=== PATIENT | male | born 1940 | race Two or more races ===

== ENCOUNTER 2022-05-30 13:09 | Emergency (ER) | payer OTHER ==
[~2022-05-30] VITALS: Ht 175.3 cm; Wt 78.0 kg
== END 2022-05-30 16:51 | disposition home or self-care (01) ==
LOC: ER 13:09
DX: U07.1 COVID-19 (principal)

== ENCOUNTER 2023-08-24 10:47 | Outpatient (CLI) | payer OTHER | END 2023-08-24 10:54 | disposition home or self-care (01) | LOC: RAD 10:47 | PROVIDERS: ATTEND Specialist | DX: M16.0 Bilateral primary osteoarthritis of hip (principal); M17.0 Bilateral primary osteoarthritis of knee ==

== ENCOUNTER 2023-11-03 07:46 | Emergency (ER) | payer OTHER ==
[~2023-11-03] VITALS: Ht 175.3 cm; Wt 79.4 kg
[2023-11-03] MEDS ORDERED: XARELTO10 MG PO (08:02)
[2023-11-03] MEDS ORDERED: TAMS0.4C PO (08:02)
== END 2023-11-03 10:40 | disposition home or self-care (01) ==
LOC: ER 07:47
DX: N40.0 Benign prostatic hyperplasia without lower urinary tract symptoms (principal); R33.9 Retention of urine, unspecified

== ENCOUNTER 2024-09-15 09:26 | Emergency (ER) | payer OTHER ==
[~2024-09-15] VITALS: Ht 172.7 cm; Wt 80.7 kg
[~2024-09-15 09:26] MED LIST: TAMS0.4C PO; XARELTO10 MG PO
[2024-09-15] MEDS ORDERED: LEVALBUTEROL HCL 1.25 MG/3 ML SOLUTION IH STA (10:52)
[2024-09-15] MEDS ORDERED: BUDESONIDE 0.5 MG/2 ML AMPUL.NEB IH STA (10:53)
[2024-09-15] MEDS ORDERED: LEVALBUTEROL HCL 1.25 MG/3 ML SOLUTION IH ONE (11:30)
[2024-09-15] MEDS ORDERED: BUDESONIDE 0.5 MG/2 ML AMPUL.NEB IH ONE (11:31)
[2024-09-15 11:33] LABS: HEMATOCRIT 39.7 % (39.0-48.0); HEMOGLOBIN 13.1 g/dL (13-16.00); MEAN CELL VOLUME 95.9 fL (80.0-100.00); MEAN CORPUSCULAR HEMOGLOBIN 31.7 pg (27.00-32.0); PLATELET COUNT 158 K/uL (150-450); RED BLOOD COUNT 4.14 M/uL (4.00-6.00); RED CELL DISTRIBUTION WIDTH 13.1 % (11.5-14.5)
== END 2024-09-15 13:38 | disposition home or self-care (01) ==
LOC: ER 09:28
PROVIDERS: General Practice
DX: J40 Bronchitis, not specified as acute or chronic (principal); R05.9 Cough, unspecified; Z20.822 Contact with and (suspected) exposure to COVID-19

== ENCOUNTER 2025-01-15 09:29 | Emergency (ER) | payer OTHER ==
[~2025-01-15] VITALS: Ht 175.3 cm; Wt 82.6 kg
[2025-01-15] MEDS ORDERED: CEFTRIAXONE SODIUM 1,000 MG VIAL IV ONE (10:30)
[2025-01-15] MEDS ORDERED: CEFTRIAXONE SODIUM 1,000 MG VIAL ONE (10:30)
[2025-01-15] MEDS ORDERED: LEVALBUTEROL HCL 0.63 MG/3 ML SOLUTION IH ONE ×2 (10:30→10:43)
[2025-01-15 11:14] LABS: COVID-19 AG NEGATIVE (NEGATIVE); INFLUENZA A AG NEGATIVE (NEGATIVE)
[2025-01-15 13:15] LABS: ABG PH 7.409 (7.35-7.45); ABG PO2 77.6 mmHg (80-100); ABG pCO2 49.6 mmHg (35-45); BASE EXCESS 4.9 mmol/l; BICARBONATE 30.7 mmol/l (23-25); SaO2 95.6 %; Tco2 32.2 mmol/l; allen test SATISFACTORY; o2 21 %; puncture site RADIAL LEFT
[2025-01-15 13:16] LABS: mode ROOM AIR
== END 2025-01-15 12:23 | disposition home or self-care (01) ==
LOC: ER 09:29
PROVIDERS: Emergency Medicine
DX: J22 Unspecified acute lower respiratory infection (principal); Z20.822 Contact with and (suspected) exposure to COVID-19; I49.9 Cardiac arrhythmia, unspecified
CPT/HCPCS: 71046; 82803; 93005; 94640; 96365; 99283; J0696

== ENCOUNTER 2025-06-02 13:00 | Emergency (ER) | payer OTHER ==
[~2025-06-02] VITALS: Ht 175.3 cm; Wt 83.9 kg
[2025-06-02] MEDS ORDERED: FINASTERIDE1 MG (13:17)
[2025-06-02] MEDS ORDERED: AZELASTINE HCL6 ML (13:17)
[2025-06-02] MEDS ORDERED: SYNALAR60 ML (13:17)
[2025-06-02] MEDS ORDERED: TIROSINT13 MCG (13:18)
[2025-06-02] MEDS ORDERED: GUAIFEN/DEXTROMETHORPHAN/PE 10 ML BLIST.PACK PO ONE ×2 (15:00→15:02)
[2025-06-02 15:19] LABS: BASO % 0.7 % (0.1-1.2); EOS # 0.42 (0.04-0.54); EOS % 5.7 % (0.7-7.0); LYMPH # 1.86 (1.18-3.74); LYMPH % 25.3 % (19.3-53.1); MEAN PLATELET VOLUME 10.30 fl (9.4-12.4); MONO # 0.87 (0.24-0.82); MONO % 11.8 % (4.7-12.5); NEUT # 4.15 (1.56-6.13); NEUT % 56.4 % (34.0-71.1); RED CELL DISTRIBUTION WIDTH 12.1 % (11.6-14.4)
== END 2025-06-02 16:57 ==
LOC: ER 13:00
PROVIDERS: General Practice
DX: R05.9 Cough, unspecified (principal); E03.8 Other specified hypothyroidism